=== PATIENT | female | born 1960 | race Caucasian/White ===

== ENCOUNTER 2016-12-18 20:34 | Emergency (ER) | payer OTHER ==
[~2016-12-18] VITALS: Ht 160 cm; Wt 66.7 kg
--- NOTE | ~2016-12-18 | EKG ---
[address] [place] [employer] [address] ELECTROCARDIOGRAM REPORT Name: ROBYN ROMERO Room #: [facility]IAJoaoJoao#: [id number] Admission: 12/18/16 Attend Phys: Discharge: 12/19/16 Date of : 56 Report #: [id number] THIS REPORT FOR: //name// [facility] ED Test Date: 2016-12-18 Test Time: 20:56:18 Pat Name: ROBYN ROMERO Department: Room: Gender: F [employer]: [id number] : [id number] Requested By: Geri Blanc Order Number: [id number] MD: Phong Wilks Measurements Intervals [place] Rate: 89 P: 52 AR: 155 QRS: 15 QRSD: 82 T: 32 QT: 352 QTc: 429 Interpretive Statements Sinus rhythm Probable left atrial enlargement Probable left ventricular hypertrophy No previous ECG available for comparison Electronically Signed On 12-19-2016 10:54:58 CDT by Phong Wilks [email or web address] <ELECTRONICALLY SIGNED> By: Phong Wilks MD 12/19/16 1054 2056 2056 Phong Wilks MD /NITA
[2016-12-18] MEDS ORDERED: NAPROSYN500 MG PO (23:15)
[2016-12-19 00:22] VITALS: BP 119/63
== END 2016-12-19 00:23 | disposition home or self-care (01) ==
LOC: ER 20:34
DX: S86.911A Strain of unspecified muscle(s) and tendon(s) at lower leg level, right leg, initial encounter (principal); F41.9 Anxiety disorder, unspecified; W18.30XA Fall on same level, unspecified, initial encounter; Y93.89 Activity, other specified; Y92.89 Other specified places as the place of occurrence of the external cause; Y99.8 Other external cause status